=== PATIENT | female | born 1990 | race Caucasian/White ===

== ENCOUNTER → 2024-06-14 | Outpatient (CLI) | payer OTHER | LOC: M LAB 09:33 | PROVIDERS: ATTEND Advanced Practice Midwife | DX: O36.80X0 Pregnancy with inconclusive fetal viability, not applicable or unspecified (principal) ==

== ENCOUNTER → 2024-06-17 | Outpatient (CLI) | payer OTHER | LOC: M LAB 13:01 | PROVIDERS: ATTEND Advanced Practice Midwife | DX: O36.80X0 Pregnancy with inconclusive fetal viability, not applicable or unspecified (principal); Z3A.00 Weeks of gestation of pregnancy not specified ==

== ENCOUNTER 2024-06-28 10:13 | Day surgery (SDC) | payer OTHER ==
[~2024-06-28] VITALS: Ht 167.6 cm; Wt 70.0 kg
[2024-06-28] MEDS ORDERED: PREN1TAB11 PO (11:08)
[2024-06-28] MEDS: DOXYCYCLINE HYCLATE 100MG TABLET PO ONE (12:21)
[2024-06-28] MEDS: SILVER NITRATE APPLICATOR (1 = QTY 10) As Ordered ONE (12:30)
[2024-06-28] MEDS ORDERED: fentaNYL 100 MCG/2 ML INJECTION As Ordered ONE (12:35)
[2024-06-28] MEDS ORDERED: propofoL 200 MG/20 ML VIAL As Ordered ONE (12:35)
[2024-06-28] MEDS ORDERED: ONDANSETRON 4MG 2ML VIAL As Ordered ONE (12:35)
[2024-06-28] MEDS ORDERED: KETOROLAC 60MG 2ML VIAL As Ordered ONE (12:35)
[2024-06-28] MEDS ORDERED: LIDOCAINE 2% 100MG/5ML SDV (FOR ANES.) As Ordered ONE (12:35)
[2024-06-28] MEDS ORDERED: MIDAZOLAM INJ 2MG/2ML VIAL As Ordered ONE (12:35)
[2024-06-28] MEDS: SCOPOLAMINE 1MG TRANSDERMAL PATCH As Ordered ONE (12:56)
[2024-06-28] MEDS: TRANEXAMIC ACID 100 MG/ML 10ML VIAL As Ordered ONE (13:05)
[2024-06-28] MEDS ORDERED: METOCLOPRAMIDE INJ 10MG/2ML VIAL As Ordered ONE (13:16)
[2024-06-28] MEDS: METHYLERGONOVINE MALEATE 0.2MG/ML 1ML VIAL As Ordered ONE (13:22)
[2024-06-28] MEDS ORDERED: ePHEDrine SULFATE 25 MG/5 ML(5MG/ML) SYRINGE As Ordered ONE (13:26)
[2024-06-28] MEDS ORDERED: PHENYLephrine 500MCG 5ML (100MCG/ML) SYRINGE As Ordered ONE (13:26)
[2024-06-28] MEDS: LIDOCAINE 1% SDV 30ML VIAL As Ordered ONE (13:35)
[2024-06-28] MEDS ORDERED: oxyCODONE 5MG TAB PO PRN (14:20)
[2024-06-28] MEDS ORDERED: HYDROMORPHONE HCL 0.5 MG/ 0.5 ML SYRINGE IV PRN (14:20)
[2024-06-28] MEDS ORDERED: ONDANSETRON 4MG 2ML VIAL IV PRN (14:20)
[2024-06-28] MEDS ORDERED: fentaNYL 100 MCG/2 ML INJECTION IV PRN (14:20)
[2024-06-28] MEDS: KETOROLAC 30 MG/ML 1ML VIAL IV STA (14:38)
[2024-06-28 15:21] VITALS: BP 111/74; TEMP 98.6; O2SAT 99
== END 2024-06-28 15:28 | disposition home or self-care (01) ==
LOC: M SDC 10:13
PROVIDERS: ATTEND Obstetrics & Gynecology
DX: O02.1 Missed abortion (principal)
CPT/HCPCS: 59820; 88305; J1100; J1885; J2210; J2250; J2371; J2405; J2765; J3010; S0191

== ENCOUNTER → 2025-02-08 | Outpatient (REF) | payer OTHER ==
[~2025-02-08] MED LIST: PREN1TAB11 PO
== END ==
LOC: M PLALAB 14:12
PROVIDERS: ATTEND Advanced Practice Midwife
DX: Z53.9 Procedure and treatment not carried out, unspecified reason (principal)

== ENCOUNTER → 2025-02-15 | Outpatient (CLI) | payer OTHER ==
[2025-02-15 13:37] LABS: PLATELET COUNT, AUTOMATED 169 10^3/uL (150-450)
[2025-02-15 14:24] LABS: HIV 1&2 SCREEN NEGATIVE (NEGATIVE)
[2025-02-15 14:33] LABS: HEPATITIS C VIRUS ABY INDEX < 0.02 INDEX (<0.8)
[2025-02-15 15:06] LABS: Trichomonas vaginalis (AMP) NOT DETECTED (NEGATIVE)
[2025-02-15 15:30] LABS: GC DNA AMPLIFICATION NEGATIVE (NEGATIVE)
== END ==
LOC: M PLALAB 09:45
PROVIDERS: ATTEND Advanced Practice Midwife
DX: Z34.80 Encounter for supervision of other normal pregnancy, unspecified trimester (principal)

== ENCOUNTER → 2025-04-16 | Outpatient (CLI) | payer OTHER | LOC: M WHC 09:56 | PROVIDERS: ATTEND Nurse Practitioner Family | DX: Z34.80 Encounter for supervision of other normal pregnancy, unspecified trimester (principal) ==